=== PATIENT | male | born 1960 | race Caucasian/White ===

== ENCOUNTER 2021-11-16 07:48 | Emergency (ER) | payer MEDICAID, OTHER ==
[~2021-11-16] VITALS: Ht 175.3 cm; Wt 72.6 kg
[2021-11-16 14:50] VITALS: BP 113/68
== END 2021-11-16 16:41 | disposition left against medical advice (07) ==
LOC: ER 07:48 → EDBD 07:48 → ER 16:41
DX: R45.851 Suicidal ideations (principal); S00.81XA Abrasion of other part of head, initial encounter; M54.50 Low back pain, unspecified; F17.210 Nicotine dependence, cigarettes, uncomplicated; F12.10 Cannabis abuse, uncomplicated; F15.10 Other stimulant abuse, uncomplicated; J44.9 Chronic obstructive pulmonary disease, unspecified; Z59.00 Homelessness unspecified; W18.09XA Striking against other object with subsequent fall, initial encounter; Y93.89 Activity, other specified; Y92.89 Other specified places as the place of occurrence of the external cause; Y99.8 Other external cause status
CPT/HCPCS: 36415; 70450; 80320; 93005